=== PATIENT | male | born 1955 | race Caucasian/White ===

== ENCOUNTER 2023-03-02 06:30 | Day surgery (SDC) | payer OTHER ==
[2023-03-01 09:20] LABS: Absolute Lymphocytes (CBC) 2.4 K/uL (0.7-4.9); Hematocrit 45.2 % (39.6-49.0); Lymphocytes % 40.1 % (15.3-44.8); MCV 93.1 fL (80-100); MPV 9.4 fL (7.6-11.3); Platelets 195 thou/uL (152-406); RBC Red Blood Cell Count 4.85 M/uL (4.33-5.43)
[2023-03-01 09:23] LABS: Protime INR 0.91
[2023-03-01 09:32] LABS: Potassium 4.5 mEq/L (3.5-5.1)
--- NOTE | 2023-03-01 09:36 | RAD REPORT ---
EXAM DESCRIPTION: Derick Ceballos And Brenna (2 Views)03/01/2023 8:51 am CLINICAL HISTORY: Preop for coronary catheterization COMPARISON: None FINDINGS: A vague 4 millimeter nodular density in the right lung Left lung appears clear of acute infiltrate. Small calcified hilar lymph nodes. The lungs appear clear of acute infiltrate. The heart is normal size IMPRESSION: A vague 4 millimeter nodular density right lung probably benign. Follow-up x-ray in 6 mo nt recommended for re-evaluation
[2023-03-02] MEDS ORDERED: VERAPAMIL HCL 10 MG/4 ML VIAL IV ONE (06:44)
[2023-03-02] MEDS ORDERED: LIDOCAINE 1% 20 ML MDV ONE (06:44)
[2023-03-02] MEDS ORDERED: HEPA 1000U/500MLS 2,000 UNIT/1,000 ML BAG IV ONE (06:44)
[2023-03-02] MEDS ORDERED: NITROGLYCERIN/D5W 50 MG/250 ML BTL IV ONE (06:44)
[2023-03-02] MEDS ORDERED: NA CHLORIDE 0.9% 500 ML ONE (06:45)
[2023-03-02] MEDS ORDERED: FENTANYL CITR 100 MCG/2 ML ONE (06:45)
[2023-03-02] MEDS ORDERED: ATROPINE SULF 1 MG/10 ML SYR IV ONE (06:46)
[2023-03-02] MEDS ORDERED: MIDAZOLAM HCL 2 MG/2 ML INJ ONE (06:46)
[2023-03-02] MEDS ORDERED: HEPARIN 5000 UNIT/ML 1 ML VIAL ONE (06:47)
[2023-03-02] MEDS ORDERED: ASPIRIN 325 MG TAB ONE (06:47)
[2023-03-02] MEDS ORDERED: CLOPIDOGREL 75 MG TABLET ONE (06:47)
[2023-03-02] MEDS ORDERED: TICAGRELOR 90 MG TABLET PO ONE (06:47)
[2023-03-02] MEDS ORDERED: HEPARIN 10,000 UNIT/10 ML VIAL IV ONE (06:47)
[2023-03-02 07:13] VITALS: TEMP 98
--- NOTE | 2023-03-02 09:05 | OP ---
Date of Procedure: 03/02/2023 Surgeon: PADDY WESLEY Procedure Performed: Selective coronary angiogram. Indications: Severe before aortic valve replacement. Access: Right radial artery 6-Maldivian closed with TR band. Complications: None. Bleeding: Less than 20 mL. Anesthesia: Total sedation time is none. Sedation was not given due to low blood pressure. Description Of Procedure: After risks, benefits, and alternatives were explained, patient agreed to proceed, signed informed consent. Patient was brought in to cardiac ablation laboratory, prepped and draped in a usual sterile fashion. Then, I accessed right radial artery using pediatric micropunctu re kit, placed a 6-Maldivian Slender sheath, took 5-Maldivian [place] 4.0 catheter into the aortic root and c ould not engage the left main. Exchanged for 6-Maldivian JL3.5 catheter, engaged the left main, took st andard views and then exchanged for 6-Maldivian JR4 catheter, engaged the RCA, took standard views and t hen removed the catheter and sheath, placed TR band with good hemostasis. Findings: 1.Left main: Normal. 2.LAD: Normal. Some luminal irregularities and normal diagonal branches. 3.Left circumflex proximal 40%, but is a large vessel. No other disease. 4.RCA: It is dominant with mid 30% to 40% stenosis. Conclusion: Mild nonobstructive coronary artery disease. Plan: Proceed with AVR as planned. SR/MODL Voice ID: [id number] Report ID: [id number]
[2023-03-02 09:46] VITALS: BP 109/76; O2SAT 98
== END 2023-03-02 09:46 | disposition home or self-care (01) ==
LOC: CCL 06:30
PROVIDERS: ATTEND Internal Medicine
DX: I35.0 Nonrheumatic aortic (valve) stenosis (principal); I25.10 Atherosclerotic heart disease of native coronary artery without angina pectoris; I95.9 Hypotension, unspecified; R03.0 Elevated blood-pressure reading, without diagnosis of hypertension; R09.89 Other specified symptoms and signs involving the circulatory and respiratory systems; Z01.810 Encounter for preprocedural cardiovascular examination; Z87.891 Personal history of nicotine dependence; Z79.899 Other long term (current) drug therapy; Z88.6 Allergy status to analgesic agent; Z88.8 Allergy status to other drugs, medicaments and biological substances
CPT/HCPCS: 85025; 80048; 36415; 83721; 85610; 85730; 71046; 93454; 76937; C1893; Q9967; J1644; J2001; J2250; J3010; J7040; 99152; 99153; J0461